=== PATIENT | male | born 1935 | race Caucasian/White ===

== ENCOUNTER 2023-12-18 16:31 | Observation (INO) | payer OTHER, SELFPAY ==
[2023-12-18] VITALS (7 sets, daily range): BP systolic 124–154; BP diastolic 63–83; BMI 26.9
--- NOTE | 2023-12-18 11:31 | ED.GENMED ---
History of Present Illness
<Helena Lisa PA-C - Last Filed: 12/18/23 15:57>
General
Chief Complaint: Chest Pain
Source: patient
Exam Limitations: none
Time Seen by Provider: 12/18/23 11:31
Nursing documentation reviewed up to this point in time: agreed with
History of Present Illness
History of Present Illness:
88-year-old male with past medical history of coronary artery disease with stent placement/hx of KS, hypertension, aortic stenosis s/p TAVR, presenting to the emergency department today with concerns of sudden onset of 10 out of 10 sharp substernal
chest pain starting while sitting at home this morning. Patient states that he was just sitting on the couch this way when the pain came on suddenly. Patient also started to feel lightheaded and dizzy with this. Patient then stood up and went to
walk around felt that the pain got worse. He then subsequently took 2 nitro's at approximately 11 AM, 5 minutes apart. Patient states that at that point the pain started to subside but his lightheadedness persisted at which point he advised his
to call 911. He states that when EMS arrived, the lightheadedness and dizziness started to improve, he was given 1 aspirin and route. Currently, patient states that he has no chest pain but he does note a small headache and some
lightheadedness. Patient denies any shortness of breath, any fevers or chills, any back pain, any abdominal pain. Patient follows with Dr. Camargo.
Past History
<Helena Lisa PA-C - Last Filed: 12/18/23 15:57>
Past History
ED Past Medical History: CAD, HTN, KS, Valvular disease and Other
ED Past Surgical History: Tonsilectomy and Other
Social History
Tobacco: Former smoker
Alcohol: None
Drug: None
Living: with family
Review of Systems
<Helena Lisa PA-C - Last Filed: 12/18/23 15:57>
Review of Systems
All Other Systems: ROS reviewed and negative except as documented in HPI and ROS
Phy Exam
<Helena Lisa PA-C - Last Filed: 12/18/23 15:57>
Physical Exam
Physical Exam:
General: Patient is well appearing and in no acute distress; non-toxic
Skin: Warm and dry, no rashes or lesions
Head: Normocephalic, atraumatic
Eyes: Sclera non-icteric. EOMs intact.
Cardiac: Regular rate and rhythm, no murmurs
Peripheral Vascular: No lower extremity swelling or edema, 2+ dorsalis pedis pulses bilaterally
Pulm: Normal respiratory effort, equal breath sounds bilaterally, no wheezes, rales or rhonchi
Abdomen: No abdominal tenderness to palpation
Musculoskeletal: No tenderness to palpation of the external chest wall
Neuro: CN II-XII intact, no focal neurologic deficits.
Psychiatric: Appropriate mood and affect.
Scores
<Helena Lisa PA-C - Last Filed: 12/18/23 15:57>
Heart Score for Chest Pain Patients
STEMI patient?: No
History: Highly Suspicious
ECG: Normal
Age: >/= 65 years
Risk Factors: >/= 3 Risk Factors or History of CAD
Troponin: </= Normal Limit
Heart Score for Chest Pain Patients: 6
Heart Score Risk: 20.3% MACE over next 6 weeks
Course
<Helena Lisa PA-C - Last Filed: 12/18/23 15:57>
Orders/Labs/Results
Orders:
Orders
12/18/23 11:34
Electrocardiogram (*1) Urgent
Reason for Study: Chest Pain
Cardiac Monitoring- Treatment ONCE
EKG- Treatment ONCE
IV Insert/Care/Rem.- Treatment PRN
O2 Therapy [RESP] Urgent
Titrate/Wean O2 to maintain O2 sat greater than (%): 90
Special Instructions: Maintain sats >/=90%
Pulse Ox/spot Check [RESP] Urgent
Quantity: 1
Special Instructions: ON ROOM AIR
12/18/23 11:42
Acetaminophen [Tylenol] 1,000 mg PO NOW STA
12/18/23 11:45
Complete Blood Count/With Diff Urgent
Comprehensive Metabolic Panel Urgent
Troponin I Urgent
12/18/23 13:25
EKG- Treatment ONCE
12/18/23 14:35
Electrocardiogram (*1) Urgent
Reason for Study: Chest Pain
12/18/23 14:37
Troponin I Urgent
Abnormal Lab Results
12/18/23 12/18/23
11:45 14:37
RBC 3.89 L 10^6/uL
(4.70-6.10)
Hgb 12.1 L g/dL
(13.0-18.0)
Hct 37.0 L %
(39.0-52.0)
MCV 95.1 H fL
(80.0-94.0)
MCH 31.1 H pg
(27.0-31.0)
MCHC 32.7 L g/dL
(33.0-37.0)
MPV 10.6 H fL
(7.4-10.4)
Eosinophils % 6.8 H %
(0-6)
BUN 23 H mg/dl
(9-20)
Glucose 180 H mg/dl
(70-99)
Troponin I 0.045 H* D ng/ml
12/18/23 11:45
12/18/23 11:45
Vital Signs
Initial and Last Documented VS:
Initial Vital Signs
Pulse Resp BP Pulse Ox
72 18 131/83 96
12/18/23 11:36 12/18/23 11:36 12/18/23 11:36 12/18/23 11:36
Last Documented Vital Signs
Pulse Resp BP Pulse Ox
61 15 142/78 97
12/18/23 14:00 12/18/23 14:00 12/18/23 14:00 12/18/23 14:00
<Janay Jimenes MD - Last Filed: 12/18/23 12:23>
Orders/Labs/Results
Orders:
Orders
12/18/23 11:34
Electrocardiogram (*1) Urgent
Reason for Study: Chest Pain
Cardiac Monitoring- Treatment ONCE
EKG- Treatment ONCE
IV Insert/Care/Rem.- Treatment PRN
O2 Therapy [RESP] Urgent
Titrate/Wean O2 to maintain O2 sat greater than (%): 90
Special Instructions: Maintain sats >/=90%
Pulse Ox/spot Check [RESP] Urgent
Quantity: 1
Special Instructions: ON ROOM AIR
12/18/23 11:42
Acetaminophen [Tylenol] 1,000 mg PO NOW STA
12/18/23 11:45
Complete Blood Count/With Diff Urgent
Comprehensive Metabolic Panel Urgent
Troponin I Urgent
12/18/23 13:25
EKG- Treatment ONCE
12/18/23 14:35
Electrocardiogram (*1) Urgent
Reason for Study: Chest Pain
12/18/23 14:37
Troponin I Urgent
Abnormal Lab Results
12/18/23 12/18/23
11:45 14:37
RBC 3.89 L 10^6/uL
(4.70-6.10)
Hgb 12.1 L g/dL
(13.0-18.0)
Hct 37.0 L %
(39.0-52.0)
MCV 95.1 H fL
(80.0-94.0)
MCH 31.1 H pg
(27.0-31.0)
MCHC 32.7 L g/dL
(33.0-37.0)
MPV 10.6 H fL
(7.4-10.4)
Eosinophils % 6.8 H %
(0-6)
BUN 23 H mg/dl
(9-20)
Glucose 180 H mg/dl
(70-99)
Troponin I 0.045 H* D ng/ml
12/18/23 11:45
12/18/23 11:45
Vital Signs
Initial and Last Documented VS:
Initial Vital Signs
Pulse Resp BP Pulse Ox
72 18 131/83 96
12/18/23 11:36 12/18/23 11:36 12/18/23 11:36 12/18/23 11:36
Last Documented Vital Signs
Pulse Resp BP Pulse Ox
61 15 142/78 97
12/18/23 14:00 12/18/23 14:00 12/18/23 14:00 12/18/23 14:00
Aleelt;Helena Lisa PA-C - Last Filed: 12/18/23 15:57>
MDM/Problems Addressed
Differential Diagnosis Includes:
ddx include ACS, PE, dysrhythmia, costochondritis
MDM/Problems Addressed:
Chest pain:
88-year-old male with past medical history of coronary artery disease with stent placement/hx of KS, hypertension, aortic stenosis s/p TAVR, presenting to the emergency department today with concerns of sudden onset of 10 out of 10 sharp substernal
chest pain starting while sitting at home this morning. Patient has associated dizziness with this. He took 2 nitro today which helped his symptoms. On physical exam, his vital signs are stable. His CBC and CMP are unremarkable with initial
troponin undetectable. His EKG demonstrates normal sinus rhythm with no obvious ischemic changes. Patient was evaluated by cardiology considering his concerning story. Cardiology recommends discharging if his second troponin is negative with
close follow-up and admitting should it be elevated. Second troponin was 0.045. Considering this finding, patient will be admitted for further workup. Patient referred for admission.
Chronic conditions affecting care:
A-fib, hypertension, coronary artery disease, aortic stenosis status post TAVR
Acute Exacerbation and/or Progression of Chronic Illness:
coronary artery disease
<Helena Lisa PA-C - Last Filed: 12/18/23 15:57>
*Pulse Oximetry
Patient hypoxic: no
*Critical Care Note
Total Time (30-74mins, 75-104mins- exclusive of procedures): Not Applicable
Data Reviewed
Review of Other/Old Records Reveals: Records (Reviewed discharge summary from 08/04/2020,reviewed ER physician documentation from 07/31/20)
Source: patient and records
<Helena Lisa PA-C - Last Filed: 12/18/23 15:57>
Update Note
Update Note:
1:27 pm-- Patient denies chest pain, lightheadedness, nausea, shortness of breath. Cardiology aware. Repeat troponin and EKG ordered.
ED Attending Note
<Helena Lisa PA-C - Last Filed: 12/18/23 15:57>
-
Portions of this chart may have been created with voice recognition software.� Occasional wrong word or��sound alike� substitutions may have occurred due to the inherent limitations of voice recognition software.
<Janay Jimenes MD - Last Filed: 12/18/23 12:23>
ED Attending Note
Patient seen and examined by attending physician: Yes
I performed the substantive portion of visit, reviewed & personally made and approve the management plan that is documented in note by myself or ANNITA.: Yes
ED Attending Note:
Patient appears well and comfortable now, however, he does report minimal symptoms of chest tightness, dizziness and shortness of breath on exertion. Patient's lungs are clear and he has no edema on exam. Given his history and symptoms, I feel
patient should be worked up as a possible acute coronary syndrome.
Discharge Plan
Departure
Patient Disposition: Admit
Date of Disposition: 12/18/23
Time of Disposition: 15:38
Admit to: Telemetry
Presentation/result/management discussed w/ accepting MD/DO: Hospitalist
Patient with high blood pressure during this ER visit?: Yes
Condition: Fair
Discharge Problem:
Acute coronary syndrome
Prescriptions:
No Action
aspirin 81 MG tablet,delayed release (DR/EC)
81 mg PO DAILY
tamsulosin 0.4 MG capsule
0.4 mg PO HS
saw palmetto 450 MG capsule
2 cap PO DAILY
nitroglycerin 0.4 MG tablet, sublingual
0.4 mg sublingual [id number] PRN (Reason: chest pain) Qty: 25 2RF
atorvastatin 40 MG tablet
40 mg PO HS
acetaminophen [Tylenol Arthritis Pain] 650 MG tablet extended release
1,300 mg PO BID
tadalafil 5 MG tablet
5 mg PO QPM
clopidogrel 75 MG tablet
75 mg PO DAILY Qty: 30 2RF
cyanocobalamin (vitamin B-12) 1,000 mcg Tablet
1,000 mcg PO QPM
spironolactone 25 mg Tablet
12.5 mg PO DAILY
carvedilol 3.125 mg Tablet
3.125 mg PO BID
acetaminophen [Tylenol Arthritis Pain] 650 mg Tablet Extended Release
650 mg PO HS
cholecalciferol (vitamin D3) [Vitamin D3] 50 mcg (2,000 unit) Tablet
50 mcg PO QPM
Referrals:
Mic Rhoades MD [Family Provider] -
Johanne Chen PA-C [Specified Professional Personl] - 01/01/24 10:40 am (You have a follow up visit with Dr. Camargo's PA, Johanne Chen, at the [place] office. Please call with questions. )
Interventions
Interventions:
*Risk Screen - Suicide Last Done: 12/18/23 11:56
*General Assessment Last Done: 12/18/23 11:39
*Neglect/Abuse Screening Last Done: 12/18/23 11:56
*ED COVID-19 Vaccine History Last Done: 12/18/23 12:20
ED- Cardiac Assessment Last Done: 12/18/23 11:56
Discharge Date and Time
Print Language: MONGOLIAN
[2023-12-18] MEDS: TYLENOL 1000 MG PO (11:49)
[2023-12-18 12:08] LABS: % Basophils 1.2 % (0-2); % Eosinophils 6.8 % (0-6); % Immature Granulocytes 0.3 % (0-0.5); % Lymphocytes 23.2 % (20.5-51.1); % Monocytes 8.7 % (1.7-9.3); % Neutrophils 59.8 % (42.2-75.2); Absolute Basophils 0.1 10^3/uL (0-0.2); Absolute Eosinophils 0.4 10^3/uL (0-0.7); Absolute Lymphocytes 1.4 10^3/uL (1.2-3.4); Absolute Monocytes 0.5 10^3/uL (0.1-0.6); Absolute Neutrophils 3.6 10^3/uL (1.4-6.5); Hemoglobin 12.1 g/dL (13.0-18.0); Mean Corp Hgb Conc. 32.7 g/dL (33.0-37.0); Mean Corpuscular Hgb 31.1 pg (27.0-31.0); Mean Corpuscular Volume 95.1 fL (80.0-94.0); Mean Platelet Volume 10.6 fL (7.4-10.4); Nucleated Red Blood Cells % 0 % (-); Platelet Count 181 10^3/uL (130-400); Red Blood Cell Count 3.89 10^6/uL (4.70-6.10); Red Cell Dist. Width 13.2 % (11.5-14.5); White Blood Cell Count 6.1 10^3/uL (4.8-10.8)
[2023-12-18 12:27] LABS: ALT (SGPT) 20 U/L (0-50); AST (SGOT) 23 U/L (17-59); Alkaline Phosphatase 71 U/L (38-126); Blood Urea Nitrogen 23 mg/dl (9-20); Calcium 9.6 mg/dl (8.4-10.2); Carbon Dioxide 28 mmol/L (22-30); Chloride 106 mmol/L (98-107); Estimated Creatinine Clearance 39 ml/min; Glucose 180 mg/dl (70-99); Potassium 4.4 mmol/L (3.5-5.1); Sodium 139 mmol/L (135-145); Total Bilirubin 0.5 mg/dl (0.2-1.3); Total Protein 6.4 g/dl (6.3-8.2); eGFR 57.81
[2023-12-18 12:39] LABS: Troponin I < 0.012 ng/ml
--- NOTE | 2023-12-18 14:03 | CON.CAR ---
Addendum entered and electronically signed by Lizandro Newton MD 12/18/23 15:17:
I saw and examined the patient.
The Hr Clerk's note was reviewed and I agree with the note.
Comment:
GEN: No distress, awake, Ox3
HEENT: supple, anicteric, mmm
LUNGS: CTA, no wheezes/rales
CV: Reg, S1/S2, 1/6 syst LSB, no gallop
ABD: soft, BS+, NT/ND
EXT: No edema
NEURO: Gross non-focal
SKIN: No rash
Plan:
88-year-old male with past medical history of coronary artery disease, TAVR, ischemic cardiomyopathy, hypertension, hyperlipidemia presents to the [facility] with chest tightness and dizziness. Patient states he had some tightness in the center
of his chest earlier today. He then took 1-1/2 nitroglycerin and had marked dizziness and lightheadedness. His pains eventually resolved on their own. He called 911 for evaluation. He currently is pain-free with a stable blood pressure.
Cardiac troponin x 1 is negative. Would repeat troponin now. If troponin is negative would be okay for discharge with outpatient follow-up.
I suspect his symptoms may be more due to the nitroglycerin then his chest pains.
Continue aspirin, Plavix, Coreg, amlodipine, and spironolactone. I would hold off on further titration of antianginals with his dizziness and borderline blood pressure. I will hold off on outpatient nitroglycerin for now.
He will be arranged for an echocardiogram as an outpatient as he does have a history of TAVR.
If his second troponin is abnormal he will need hospitalization.
Original Note:
Consultation
Consultation Request
Date/Time Consultation Requested: 12/18/2023
Date/Time Consultation Performed: 12/18/2023
Requesting Provider: Helena Lisa PA-C
Performing Provider: Dr. Newton
Reason for Consultation: Chest pain
Medical History
-
History of Present Illness:
HPI: Hiren is an 88 year old male with PMH of CAD w/ multiple prior stents, TAVR, ischemic CM, hypertension, hyperlipidemia, TIA, SUSAN, and prior tobacco abuse who presented to [facility] for evaluation of chest tightness and dizziness. He states he was
sitting downstairs at his computer earlier today when he had sudden onset chest tightness. Tightness was along anterior of entire chest, so he took a nitroglycerin tablet. After 2-3 minutes, he reports he took another tablet due to continued
discomfort. He then developed dizziness and lightheadedness which he states was more concerning than the tightness in his chest. He tried to walk upstairs to get his , but was unable to walk due to feeling lightheaded and off balance. He was
able to crawl to the top of the steps and told his to call 911. When he was in the ambulance on his way to the hospital, approximately 10 minutes after taking the nitro, he states his chest tightness and lightheadedness both began to improve.
On arrival to ER, initial troponin was negative, his VS were stable, and EKG was stable. He has been feeling well and has no chest discomfort or lightheadedness currently. He denies any SOB, diaphoresis, or palpitations during his episode of chest
tightness. He reports symptoms today feel different from his prior angina which he states felt like someone had a belt around his entire upper body. Cardiology consulted for evaluation given chest pain with history of CAD.
PMH:
CAD
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
PCI of first diagonal 06/27/2016
stable CAD with patent stents 08/03/2020
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
Ischemic CM, EF 45%
HTN
HLD
h/o TIA post PCI 08/2015
SUSAN
Former smoker
Past Medical History
Past Medical History: Other (In HPI)
Past Surgical History: Cardiac (RCA, LAD, PLB PCI 08/2015, D1 PCI 06/2016, TAVR 08/31/2020) and Other (hernia repair, R rotator cuff surgery)
Social History
Tobacco: Former Smoker
Alcohol: None
Drug: None
Personal:
Living: With Family
Employment: Retired
Family History
Family History: CAD, Cancer and Diabetes
Allergies / Home Medications
Allergy/AdvReac Type Severity Reaction Status Date / Time
No Known Allergies Allergy Unverified 08/24/20 09:30
�Medication �Instructions �Recorded �Confirmed �Type
aspirin 81 mg tablet,delayed 81 mg PO DAILY Blood clot 09/16/15 08/31/20 History
release prevention/tx
saw palmetto 450 mg capsule 2 cap PO DAILY herbal 09/16/15 08/31/20 History
tamsulosin 0.4 mg capsule 0.4 mg PO QPM PROSTATE 09/16/15 08/31/20 History
nitroglycerin 0.4 mg sublingual 0.4 mg sublingual [id number] PRN 09/21/15 08/31/20 Rx
tablet chest pain #25 tabs
atorvastatin 40 mg tablet 40 mg PO QPM High cholesterol 06/27/16 08/31/20 History
acetaminophen 650 mg 650 mg PO Q8H Pain 07/31/20 08/31/20 History
tablet,extended release (Tylenol
Arthritis Pain)
amlodipine 2.5 mg tablet 2.5 mg PO BID Blood pressure 07/31/20 08/31/20 History
cholecalciferol (vitamin D3) 25 1,000 units PO QPM Supplement 07/31/20 08/31/20 History
mcg (1,000 unit) tablet
furosemide 20 mg tablet 20 mg PO DAILY Heart Failure #30 08/04/20 08/24/20 Rx
tabs
tadalafil 5 mg tablet 5 mg PO DAILY Urinary issue 08/31/20 08/31/20 History
clopidogrel 75 mg tablet 75 mg PO DAILY #30 tabs 09/01/20 Rx
Review of Systems
-
History Source: Patient
All other systems: Negative unless noted
Physical Exam
Vital Signs
Pulse Resp BP Pulse Ox
62 15 124/66 96
12/18/23 13:00 12/18/23 13:00 12/18/23 13:00 12/18/23 13:00
Lab Results
12/18/23 11:45
12/18/23 11:45
Troponin I < 0.012 ng/ml 12/18/23 11:45
Physical Exam
General: Well Developed, Well Nourished and No Apparent Distress
HEENT: Normocephalic, Anicteric and Moist Mucous Membranes
Respiratory: Clear and Non Labored Respirations
Cardiac: S1/S2 and Regular Rhythm
Musculoskeletal: No Clubbing, No Cyanosis and Edema
Skin: Warm and Dry
Neuro: AO x 3 and Nonfocal/Grossly Intact
Psych: Calm
Impression / Plan
-
PCP: Dr. Rhoades
Global Program Director: Dr. Camargo
Impression:
Presented with chest tightness, dizziness
CAD
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
PCI of first diagonal 06/27/2016
stable CAD with patent stents 08/03/2020
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
Ischemic CM, EF 45%
HTN
HLD
h/o TIA post PCI 08/2015
SUSAN
Former smoker
Echo 10/04/2021: EF 45%, mild LVH, global hypokinesis, MAC, s/p TAVR w/ peak/mean gradients 14/8 mmHg
Plan:
-Episode of chest tightness earlier today while at computer. Took 2 nitro tablets within 2 minutes and subsequently had lightheadedness and near syncope.
-Suspect lightheadedness related to nitroglycerin.
-Chest tightness feels different from prior angina. Active regularly, golfing once/week without any exertional symptoms.
-Initial troponin negative. Repeat troponin and if remains stable/negative, ok for discharge.
-EKG SR with no acute ischemic changes noted.
-Continues on aspirin 81mg daily and Plavix 75 mg daily.
-Known CM with EF 45% by most recent echo. Will reassess as OP.
-As OP, will arrange for stress testing.
-BP stable. Continue coreg 3.125mg BID and spironolactone 12.5 mg daily.
-Continue lipitor 40mg daily.
-Follow up arranged.
HPI: Hiren is an 88 year old male with PMH of CAD w/ multiple prior stents, TAVR, ischemic CM, hypertension, hyperlipidemia, TIA, SUSAN, and prior tobacco abuse who presented to [facility] for evaluation of chest tightness and dizziness. He states he was
sitting downstairs at his computer earlier today when he had sudden onset chest tightness. Tightness was along anterior of entire chest, so he took a nitroglycerin tablet. After 2-3 minutes, he reports he took another tablet due to continued
discomfort. He then developed dizziness and lightheadedness which he states was more concerning than the tightness in his chest. He tried to walk upstairs to get his , but was unable to walk due to feeling lightheaded and off balance. He was
able to crawl to the top of the steps and told his to call 911. When he was in the ambulance on his way to the hospital, approximately 10 minutes after taking the nitro, he states his chest tightness and lightheadedness both began to improve.
On arrival to ER, initial troponin was negative, his VS were stable, and EKG was stable. He has been feeling well and has no chest discomfort or lightheadedness currently. He denies any SOB, diaphoresis, or palpitations during his episode of chest
tightness. He reports symptoms today feel different from his prior angina which he states felt like someone had a belt around his entire upper body. Cardiology consulted for evaluation given chest pain with history of CAD.
Data Reviewed
-
EKG: Tracing Personally Visualized and interpreted
Labs: Labs Reviewed by me
Old Records: Reviewed
[2023-12-18 15:21] LABS: Troponin I 0.045 ng/ml
--- NOTE | 2023-12-18 15:46 | HPS.HSE ---
Family Physician
<SKYLAR Sanders - Last Filed: 12/18/23 16:19>
-
Family Physician: Mic Rhoades
Chief Complaint
<SKYLAR Sanders - Last Filed: 12/18/23 16:19>
-
Chest pain
History of Present Illness
88-year-old male complaining of midsternal chest tightness earlier today at 1030 this a.m. while sitting. He reports taking 2 nitroglycerin then reported having dizziness with lightheadedness. His MAR reports he took Cialis 5 mg yesterday evening
12/17/2023. He called EMS to bring him to the emergency room. He is currently chest pain-free with normal blood pressure. He was evaluated at bedside by cardiology. He has past medical history of CAD/cardiac stents LAD PCI, RCA PCI, PLV PCI, left
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
Medical History
<SKYLAR Sanders - Last Filed: 12/18/23 16:19>
Past Medical History
Past Medical History: Reports Other
Additional Past Medical History:
CAD multiple cardiac stents
Ischemic cardiomyopathy EF 45%
HTN
HLD
h/o TIA post PCI 08/2015
SUSAN
Former smoker
Past Surgical History: Reports Other
Additional Past Surgical History:
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
PCI of first diagonal 06/27/2016
stable CAD with patent stents 08/03/2020/p TAVR 08/31/2020
Social History
Tobacco: Non-smoker
Alcohol: None
Drug: None
Personal:
Living: With Family
Employment: Retired
Family History
Family History: Not pertinent
Allergies / Home Medications
Allergies reflects when Allergies were last updated in [facility].
Home Medications with original date entered in [facility]
Allergy/Medication List:
Allergies
Allergy/AdvReac Type Severity Reaction Status Date / Time
No Known Allergies Allergy Unverified 08/24/20 09:30
Home Medications
aspirin 81 mg tablet,delayed release 81 mg PO DAILY Blood clot prevention/tx 09/16/15
saw palmetto 450 mg capsule 2 cap PO DAILY herbal 09/16/15
tamsulosin 0.4 mg capsule 0.4 mg PO HS PROSTATE 09/16/15
nitroglycerin 0.4 mg sublingual tablet 0.4 mg sublingual [id number] PRN chest pain #25 tabs 09/21/15
atorvastatin 40 mg tablet 40 mg PO HS High cholesterol 06/27/16
acetaminophen 650 mg tablet,extended release (Tylenol Arthritis Pain) 1,300 mg PO BID Pain 07/31/20
tadalafil 5 mg tablet 5 mg PO QPM Urinary issue 08/31/20
clopidogrel 75 mg tablet 75 mg PO DAILY #30 tabs 09/01/20
acetaminophen 650 mg tablet,extended release (Tylenol Arthritis Pain) 650 mg PO HS 12/18/23
carvedilol 3.125 mg tablet 3.125 mg PO BID 12/18/23
cholecalciferol (vitamin D3) 50 mcg (2,000 unit) tablet (Vitamin D3) 50 mcg PO QPM 12/18/23
cyanocobalamin (vitamin B-12) 1,000 mcg tablet 1,000 mcg PO QPM 12/18/23
spironolactone 25 mg tablet 12.5 mg PO DAILY 12/18/23
Review of Systems
Aleelt;SKYLAR Sanders - Last Filed: 12/18/23 16:19>
-
History Source: Patient and Family ( at bedside)
A 12 point ROS was completed and negative except as noted: Yes
Constitutional: Denies Fever or Chills
EENT: Denies Sore Throat or Runny Nose
Respiratory: Denies Cough or Trouble Breathing
Cardiac: Reports Chest Pain (Midsternal); Denies Diaphoresis, Palpitations or Syncope
Abdomen/GI: Denies Abdominal Pain, Nausea, Vomiting, Diarrhea, Constipated, Bloody Stools or Black Stools
: Denies Dysuria, Frequency, Flank Pain, Incontinence or Difficulty Voiding
Musculoskeletal: Denies Joint Pain or Edema
Skin: Denies Itching or Rash
Neurological: Denies Dizzy, Headache or Weakness
Endocrine: Reports No Symptoms
Hematologic/Lymphatic: Reports No Symptoms
Psych: Reports Calm
Physical Exam
<SKYLAR Sanders - Last Filed: 12/18/23 16:19>
Vital Signs
Vital Signs
Pulse Resp BP Pulse Ox
61 15 142/78 97
12/18/23 14:00 12/18/23 14:00 12/18/23 14:00 12/18/23 14:00
Physical Exam
General: Comfortable and Conversant; No Pain, Fever or Chills
HEENT: NormoCephalic, Anicteric, Moist mucous membranes and No Ptosis
Respiratory: Clear; No Wheezes, Rales or Rhonchi
Cardiac: S1/S2 and Regular Rhythm; No Murmur, Rub, Gallop or Peripheral Edema
Breast: Deferred by me
GI: Soft, Non Tender, Non Distended, Normal Bowel Sounds and No Hepatosplenomegaly
Rectal: Deferred by Provider
Genito-urinary: Deferred by me
Musculoskeletal: No Clubbing, No Cyanosis and No Edema
Skin: Warm and Dry; No Rash
Neuro: AO x 3, No Motor Deficits, Nonfocal/grossly intact, Cranial Nerves Intact and No Sensory Deficits; No Slurred Speech, Facial Droop or Tremors
Psych: Calm
Laboratory Results
<SKYLAR Sanders - Last Filed: 12/18/23 16:19>
-
12/18/23 11:45
12/18/23 11:45
Laboratory Results
Total Bilirubin 0.5 mg/dl (0.2-1.3) 12/18/23 11:45
AST 23 U/L (17-59) 12/18/23 11:45
ALT 20 U/L (0-50) 12/18/23 11:45
Alkaline Phosphatase 71 U/L (38-126) 12/18/23 11:45
Troponin I 0.045 ng/ml H* D 12/18/23 14:37
Impression/Plan
<SKYLAR Sanders - Last Filed: 12/18/23 16:19>
-
Impression/plan:
Admit to telemetry
#Nonischemic myocardial injury
Troponin <0.012 , second 0.045 follow troponin, EKG
-Hold nitroglycerin suspect prior lightheadedness was related to nitro use versus Cialis yesterday 12/17/23
Continue aspirin, Plavix,
-cont Coreg, amlodipine, spironolactone-with hold parameters
#CAD multiple cardiac stents
#Ischemic cardiomyopathy EF 45%
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
PCI of first diagonal 06/27/2016
stable CAD with patent stents 08/03/2020/p TAVR 08/31/2020
#TAVR Hx 08/31/2020
-Was recommended outpatient echo by cardiology
2D echo 10/04/2021: EF 45%, mild LVH, global hypokinesis, status post TAVR with peak mean gradients 14/8 mmHg
#HTN�benign
BP 142/78
-Continue Coreg
#HLD
-Check lipid profile
-Continue atorvastatin 40 mg every afternoon
#TIA post PCI 08/2015
#SUSAN
#Former smoker
#BPH
Hold tadalafil given patient took nitroglycerin earlier today-patient advised must wait 48 before using Cialis and nitro together
Continue Flomax
#Arthritis�unknown type
Continue Tylenol arthritis 1300 mg twice daily, vitamin D3
DVT prophylaxis
Subcu Lovenox
Full code
<Chema Guerra MD - Last Filed: 12/18/23 16:24>
-
Impression/plan:
Admit to telemetry
#Nonischemic myocardial injury
Troponin <0.012 , second 0.045 follow troponin, EKG
-Hold nitroglycerin suspect prior lightheadedness was related to nitro use versus Cialis yesterday 12/17/23
Continue aspirin, Plavix,
-cont Coreg, amlodipine, spironolactone-with hold parameters
#CAD multiple cardiac stents
#Ischemic cardiomyopathy EF 45%
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
PCI of first diagonal 06/27/2016
stable CAD with patent stents 08/03/2020/p TAVR 08/31/2020
#TAVR Hx 08/31/2020
-Was recommended outpatient echo by cardiology
2D echo 10/04/2021: EF 45%, mild LVH, global hypokinesis, status post TAVR with peak mean gradients 14/8 mmHg
#HTN�benign
BP 142/78
-Continue Coreg
#HLD
-Check lipid profile
-Continue atorvastatin 40 mg every afternoon
#TIA post PCI 08/2015
#SUSAN
#Former smoker
#BPH
Hold tadalafil given patient took nitroglycerin earlier today-patient advised must wait 48 before using Cialis and nitro together
Continue Flomax
#Arthritis�unknown type
Continue Tylenol arthritis 1300 mg twice daily, vitamin D3
DVT prophylaxis
Subcu Lovenox
Full code
I saw and examined the patient.
The ROLLER MACHINE OPERATOR or PA's note was reviewed and I agree with the note.
Comment:
88-year-old male complaining of midsternal chest tightness earlier today at 1030 this a.m. while sitting. He reports taking 2 nitroglycerin then reported having dizziness with lightheadedness.
Physical Exam
General: Comfortable and Conversant; No Pain, Fever or Chills
HEENT: NormoCephalic, Anicteric, Moist mucous membranes and No Ptosis
Respiratory: Clear; No Wheezes, Rales or Rhonchi
Cardiac: S1/S2
GI: Soft, Non Tender, Non Distended, Normal Bowel Sounds and No Hepatosplenomegaly
Genito-urinary: NO Carlos
Musculoskeletal: No Clubbing, No Cyanosis and No Edema
Skin: Warm and Dry; No Rash
Neuro: AO x 3, No Motor Deficits, Nonfocal/grossly intact, Cranial Nerves Intact and No Sensory Deficits; No Slurred Speech, Facial Droop or Tremors
Psych: Calm
#Nonischemic myocardial injury
No active chest pain at present time
Troponin <0.012 , second 0.045 follow troponin, EKG
-Hold nitroglycerin suspect prior lightheadedness was related to nitro use versus Cialis yesterday 12/17/23
Continue aspirin, Plavix,
-cont Coreg, amlodipine, spironolactone-with hold parameters
d/ cardiology, ok for telemetry, keep on aspirin and Plavix for now.
#CAD multiple cardiac stents
#Ischemic cardiomyopathy EF 45%
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
PCI of first diagonal 06/27/2016
stable CAD with patent stents 08/03/2020/p TAVR 08/31/2020
#TAVR Hx 08/31/2020
-Was recommended outpatient echo by cardiology
2D echo 10/04/2021: EF 45%, mild LVH, global hypokinesis, status post TAVR with peak mean gradients 14/8 mmHg
#HTN�benign
BP 142/78
-Continue Coreg
#HLD
-Check lipid profile
-Continue atorvastatin 40 mg every afternoon
#TIA post PCI 08/2015
#SUSAN
#Former smoker
#BPH
Hold tadalafil given patient took nitroglycerin earlier today-patient advised must wait 48 before using Cialis and nitro together
Continue Flomax
#Arthritis�unknown type
Continue Tylenol arthritis 1300 mg twice daily, vitamin D3
DVT prophylaxis
Subcu Lovenox
Total time spent to see the patient, examine the patient on the floor, review data and lab results, discuss treatment plan with patient, and his , ER doctor, nursing staff around 75 minutes
[2023-12-18] MEDS: VITAMIN B-12 1000 MCG PO (18:28)
[2023-12-18] MEDS: LOVENOX 40 MG SC (18:28)
[2023-12-18] MEDS: VITAMIN D3 (cholecalciferol) 50 MCG PO (18:28)
[2023-12-18] MEDS: COREG 3.125 MG PO (20:55)
[2023-12-18] MEDS: FLOMAX 0.4 MG PO (20:56)
[2023-12-18] MEDS: LIPITOR 40 MG PO (20:56)
[2023-12-18 21:14] LABS: Troponin I 0.063 ng/ml
[2023-12-19] VITALS (12 sets, daily range): BP systolic 109–161; BP diastolic 66–95; PULSE 64; O2SAT 97; BMI 25.4
[2023-12-19] MEDS: TYLENOL PO ×3 (00:02→13:16)
[2023-12-19 03:47] LABS: % Basophils 1.3 % (0-2); % Eosinophils 7.1 % (0-6); % Immature Granulocytes 0.1 % (0-0.5); % Lymphocytes 35.6 % (20.5-51.1); % Monocytes 9.2 % (1.7-9.3); % Neutrophils 46.7 % (42.2-75.2); Absolute Basophils 0.1 10^3/uL (0-0.2); Absolute Eosinophils 0.5 10^3/uL (0-0.7); Absolute Lymphocytes 2.5 10^3/uL (1.2-3.4); Absolute Monocytes 0.7 10^3/uL (0.1-0.6); Absolute Neutrophils 3.3 10^3/uL (1.4-6.5); Hematocrit 34.6 % (39.0-52.0); Hemoglobin 11.6 g/dL (13.0-18.0); Mean Corp Hgb Conc. 33.5 g/dL (33.0-37.0); Mean Corpuscular Hgb 30.6 pg (27.0-31.0); Mean Corpuscular Volume 91.3 fL (80.0-94.0); Mean Platelet Volume 10.5 fL (7.4-10.4); Nucleated Red Blood Cells % 0 % (-); Platelet Count 170 10^3/uL (130-400); Red Blood Cell Count 3.79 10^6/uL (4.70-6.10); Red Cell Dist. Width 13.1 % (11.5-14.5); White Blood Cell Count 7.1 10^3/uL (4.8-10.8)
[2023-12-19 04:11] LABS: Blood Urea Nitrogen 26 mg/dl (9-20); Calcium 9.5 mg/dl (8.4-10.2); Carbon Dioxide 28 mmol/L (22-30); Chloride 107 mmol/L (98-107); Estimated Creatinine Clearance 47 ml/min; Glucose 103 mg/dl (70-99); HDL Cholesterol 57 mg/dl; LDL Cholesterol, Calculated 49 mg/dl; Potassium 4.2 mmol/L (3.5-5.1); Sodium 139 mmol/L (135-145); Total Cholesterol 122 mg/dl (50-199); Triglyceride 81 mg/dl (10-149); Very Low Density Lipoprotein 16 mg/dl (0-30); eGFR > 60.00
[2023-12-19 04:28] LABS: Troponin I 0.047 ng/ml
--- NOTE | 2023-12-19 07:53 | W.PN.CARDCBS ---
Addendum entered and electronically signed by Carlos Parikh MD 12/19/23 09:45:
Attending addendum: Patient will be scheduled for left heart catheterization today given mildly elevated troponin. Further management decisions will be made after the angiogram is completed. Refer to the cardiac catheterization report
Original Note:
Today's Communication / Plan
-
C today
Continue aspirin and Plavix
Continue lipitor
Impression / Plan
-
PCP: Dr. Rhoades
Manufacturing Project Engineer: Dr. Camargo
Impression:
Presented with chest tightness, dizziness
Elevated troponin
CAD
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
PCI of first diagonal 06/27/2016
stable CAD with patent stents 08/03/2020
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
Ischemic CM, EF 45%
HTN
HLD
h/o TIA post PCI 08/2015
SUSAN
Former smoker
Echo 10/04/2021: EF 45%, mild LVH, global hypokinesis, MAC, s/p TAVR w/ peak/mean gradients 14/8 mmHg
Echo 12/19/2023: Study pending
Plan:
-Presented with episode of chest discomfort, occurring at rest.
-Took 2 nitro tablets within 2 minutes and subsequently had lightheadedness and near syncope. Chest tightness resolved within approximately 10 minutes.
-Initial troponin negative, however subsequently was elevated, peaking at 0.063 and trending down thereafter.
-He has had no further chest pain overnight. No further lightheadedness.
-Given elevated troponin with episode of chest pain and known CAD, plan is for [facility] today, 12/18. Keep NPO.
-Continues on aspirin 81mg daily and Plavix 75 mg daily.
-Known CM with EF 45% by most recent echo. Recheck post cath.
-BP stable. Continue coreg 3.125mg BID and spironolactone 12.5 mg daily.
-Continue lipitor 40mg daily. LDL 49.
-Follow up arranged.
HPI: Hiren is an 88 year old male with PMH of CAD w/ multiple prior stents, TAVR, ischemic CM, hypertension, hyperlipidemia, TIA, SUSAN, and prior tobacco abuse who presented to [facility] for evaluation of chest tightness and dizziness. He states he was
sitting downstairs at his computer earlier today when he had sudden onset chest tightness. Tightness was along anterior of entire chest, so he took a nitroglycerin tablet. After 2-3 minutes, he reports he took another tablet due to continued
discomfort. He then developed dizziness and lightheadedness which he states was more concerning than the tightness in his chest. He tried to walk upstairs to get his , but was unable to walk due to feeling lightheaded and off balance. He was
able to crawl to the top of the steps and told his to call 911. When he was in the ambulance on his way to the hospital, approximately 10 minutes after taking the nitro, he states his chest tightness and lightheadedness both began to improve.
On arrival to ER, initial troponin was negative, his VS were stable, and EKG was stable. He has been feeling well and has no chest discomfort or lightheadedness currently. He denies any SOB, diaphoresis, or palpitations during his episode of chest
tightness. He reports symptoms today feel different from his prior angina which he states felt like someone had a belt around his entire upper body. Cardiology consulted for evaluation given chest pain with history of CAD.
Progress Note - Manufacturing Project Engineer
Subjective
Date of Service: December 19, 2023
No further chest pain or lightheadedness overnight.
Objective
Labs:
12/19/23 03:35
12/19/23 03:35
Labs
Hgb 11.6 g/dL (13.0-18.0) L 12/19/23 03:35
Hct 34.6 % (39.0-52.0) L 12/19/23 03:35
Plt Count 170 10^3/uL (130-400) 12/19/23 03:35
Sodium 139 mmol/L (135-145) 12/19/23 03:35
Potassium 4.2 mmol/L (3.5-5.1) 12/19/23 03:35
BUN 26 mg/dl (9-20) H 12/19/23 03:35
Creatinine 1.0 mg/dL (0.7-1.3) 12/19/23 03:35
Glucose 103 mg/dl (70-99) H 12/19/23 03:35
Troponins
12/18/23 12/18/23 12/18/23
11:45 14:37 20:42
Troponin I < 0.012 0.045 H* D 0.063 H* D
12/19/23 12/19/23
03:35 09:00
Troponin I 0.047 H* D Cancelled
Vital Signs and I&O:
Vital Signs
Temp Pulse Resp BP Pulse Ox
97.3 F 53 16 121/72 97
12/19/23 04:11 12/19/23 04:11 12/19/23 04:11 12/19/23 04:11 12/19/23 04:11
Vital Signs
Temp Pulse Resp BP Pulse Ox
97.3 F 53 16 121/72 97
12/19/23 04:11 12/19/23 04:11 12/19/23 04:11 12/19/23 04:11 12/19/23 04:11
Intake & Output
12/17/23 12/18/23 12/19/23 12/20/23
06:59 06:59 06:59 06:59
Intake Total 240 / 240
Balance 240 / 240
Physical Exam
Physical Exam
GEN: No distress, awake, alert, oriented x3
HEENT: supple, anicteric, mmm
LUNGS: CTA b/l, no wheezes/rales
CV: Reg, S1/S2, no murmur
EXT: No clubbing, cyanosis, or edema
NEURO: Gross non-focal
SKIN: Warm, dry, no rash
[2023-12-19] MEDS: ALDACTONE 12.5 MG PO (08:09)
[2023-12-19] MEDS: PLAVIX 75 MG PO (08:09)
[2023-12-19] MEDS: ASPIR LOW (ENTERIC COATED) 81 MG PO (08:09)
[2023-12-19] MEDS: COREG 3.125 MG PO (08:10)
--- NOTE | 2023-12-19 08:48 | W.PN.HOSP.TC ---
Today's Communication/Plan
-
LHC per cardiology
will follow
Assessment / Plan
Assessment / Plan
Physical Exam
General: Comfortable and Conversant; No Pain, Fever or Chills
HEENT: NormoCephalic, Anicteric, Moist mucous membranes and No Ptosis
Respiratory: Clear; No Wheezes, Rales or Rhonchi
Cardiac: S1/S2
GI: Soft, Non Tender, Non Distended, Normal Bowel Sounds and No Hepatosplenomegaly
Genito-urinary: No Carlos
Musculoskeletal: No Clubbing, No Cyanosis and No Edema
Skin: Warm and Dry; No Rash
Neuro: AO x 3, No Motor Deficits, Nonfocal/grossly intact, Cranial Nerves Intact and No Sensory Deficits; No Slurred Speech, Facial Droop or Tremors
Psych: Calm
# Type II AR
Chest pain with Mildly positive troponin
Rule out cardiac ischemia,
Seen this morning and plan to do LHC to determine if ischemia or non ischemia related chest pain
No active chest pain at present time
Troponin <0.012 , second 0.045 follow troponin, EKG
-Hold nitroglycerin suspect prior lightheadedness was related to nitro use versus Cialis yesterday 12/17/23
Continue aspirin, Plavix,
-cont Coreg, amlodipine, spironolactone-with hold parameters
Appreciate cardiology input
#CAD multiple cardiac stents
#Ischemic cardiomyopathy EF 45%
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
PCI of first diagonal 06/27/2016
stable CAD with patent stents 08/03/2020/p TAVR 08/31/2020#TAVR Hx 08/31/2020
-Was recommended outpatient echo by cardiology
2D echo 10/04/2021: EF 45%, mild LVH, global hypokinesis, status post TAVR with peak mean gradients 14/8 mmHg
#HTN�benign
BP 142/78
-Continue Coreg
#HLD
-Check lipid profile
-Continue atorvastatin 40 mg every afternoon
#TIA post PCI 08/2015
#SUSAN
#Former smoker
#BPH
Hold tadalafil given patient took nitroglycerin earlier today-patient advised must wait 48 before using Cialis and nitro together
Continue Flomax
#Arthritis�unknown type
Continue Tylenol arthritis 1300 mg twice daily, vitamin D3
DVT prophylaxis
Subcu Lovenox
Total time spent to see the patient, examine the patient on the floor, review data and lab results, discuss treatment plan with patient, nursing staff around 55 minutes
Anticipated Discharge: Within 24 hours
Subjective/Interval History
-
Date of Service: December 19, 2023
No chest pain over night
No sob
Objective Data
-
Labs:
Laboratory Results
12/19/23
03:35
WBC 7.1
Hgb 11.6 L
Hct 34.6 L
Plt Count 170
Sodium 139
Potassium 4.2
Chloride 107
Carbon Dioxide 28
BUN 26 H
Creatinine 1.0
Glucose 103 H
Calcium 9.5
Vital Signs:
Vital Signs
Temp Pulse Resp BP Pulse Ox
97.3 F 53 16 121/72 97
12/19/23 04:11 12/19/23 04:11 12/19/23 04:11 12/19/23 04:11 12/19/23 04:11
I&O
12/18/23 12/19/23 12/20/23
06:59 06:59 06:59
Intake Total 240 / 240
Balance 240 / 240
--- NOTE | 2023-12-19 11:53 | ITS.CL.CATH ---
Mobile Development Manager - Catheterization
Cardiac Catheterization
Procedure Report:
LEFT HEART CATHETERIZATION
Date of Procedure: December 19, 2023
Referring: Dr. Esa Newton
PROCEDURES:
1. Coronary angiography
INDICATION: This is an 88-year-old gentleman with a prior history of coronary artery disease and stenting of the mid LAD with a 3.0 x 16 mm Promus stent, a 2.5 x 16 mm Promus stent and a posterolateral branch jailing a parallel sidebranch in 2015
and stenting of the first diagonal branch with a 2.25 x 24 mm Synergy stent in 2017. He had a transcatheter aortic valve placed in August 2020 for treatment of severe symptomatic aortic stenosis. He has done well and was seen in the office 1 week
ago. He presented to [facility] emergency department on 12/18/2023 with complaints of chest discomfort and his troponin was initially undetectable then became mildly elevated peaking at 0.065 ng/mL before trending lower. He is now referred
for coronary angiography.
ACCESS: Right radial artery, 6 [place] sheath
HEMODYNAMICS : (mmHg)
AO (s/d) : 108/55
CORONARY FINDINGS
DOMINANCE: Right
LEFT MAIN: Normal
LEFT ANTERIOR DESCENDING: The LAD arises normally from the left main and runs in the anterior interventricular groove. The first diagonal branch arises very proximally from the LAD. There is a stent in the midportion of the first diagonal branch
that is widely patent. The stent in the mid LAD spans the origin of the first septal finished carpet inspector. The mid LAD gives rise to a very small second diagonal branch that has a focal 80% stenosis at its origin. The distal LAD has a 60% stenosis and
apically has a 60% stenosis
CIRCUMFLEX: The circumflex arises from the left main and gives rise to medium caliber OM1 and terminates in a small OM 2. There is SAGE-3 flow into both vessels.
RIGHT CORONARY ARTERY: The right coronary artery is a dominant vessel. The stent in the mid right coronary artery is widely patent. There is a stent in the distal posterolateral branch that remains widely patent. The stent jails a parallel
posterolateral daughter vessel
VENTRICULOGRAPHY: Not done
RADIATION SUMMARY: Fluoro Time (min): 5.9, Dose (mGy): 479, DAP (Gy.cm2) : 30.9
Closure Device: TR band
CONCLUSIONS
1. Stable coronary anatomy and patent diagonal, LAD, mid RCA, and PLB stents
RECOMMENDATIONS
1. Medical therapy: Increase carvedilol from 3.125 mg to 6.25 mg p.o. twice daily and add low-dose amlodipine
2. Cardiac monitoring x 2 weeks with Bardy DX
Copy to: Dr. Bk Camargo
[2023-12-19] MEDS: TYLENOL 650 MG PO (17:15)
[2023-12-19] MEDS: VITAMIN D3 (cholecalciferol) 50 MCG PO (17:15)
[2023-12-19] MEDS: VITAMIN B-12 1000 MCG PO (17:15)
[2023-12-19] MEDS: LOVENOX 40 MG SC (17:15)
[2023-12-19] MEDS: LIPITOR 40 MG PO (22:31)
[2023-12-19] MEDS: FLOMAX 0.4 MG PO (22:31)
[2023-12-19] MEDS: NORVASC 2.5 MG PO (22:33)
[2023-12-19] MEDS: COREG 6.25 MG PO (22:33)
[2023-12-20] MEDS: TYLENOL PO ×2 (00:36→11:47)
[2023-12-20 03:00] VITALS: BP 133/68
[2023-12-20] MEDS: TYLENOL 650 MG PO (05:36)
[2023-12-20 06:00] VITALS: BMI 25.1
[2023-12-20] MEDS: ASPIR LOW (ENTERIC COATED) 81 MG PO (08:15)
[2023-12-20] MEDS: COREG 6.25 MG PO (08:15)
[2023-12-20] MEDS: NORVASC 2.5 MG PO (08:15)
[2023-12-20] MEDS: PLAVIX 75 MG PO (08:15)
--- NOTE | 2023-12-20 08:30 | W.PN.HOSP.TC ---
Today's Communication/Plan
-
dc
Assessment / Plan
Assessment / Plan
Physical Exam
General: Comfortable and Conversant; No Pain, Fever or Chills
HEENT: NormoCephalic, Anicteric, Moist mucous membranes and No Ptosis
Respiratory: Clear; No Wheezes, Rales or Rhonchi
Cardiac: S1/S2, + murmur
GI: Soft, Non Tender, Non Distended, Normal Bowel Sounds
Genito-urinary: No Carlos
Musculoskeletal: No Clubbing, No Cyanosis and No Edema. Right wrist , no swelling, good peripheral pulse.
Skin: Warm and Dry; No Rash
Neuro: AO x 3, No Motor Deficits, Nonfocal/grossly intact, Cranial Nerves Intact and No Sensory Deficits; No Slurred Speech, Facial Droop or Tremors
Psych: Calm
# Type II PA
Chest pain with Mildly positive troponin
LHC showed : Stable coronary anatomy and patent diagonal, LAD, mid RCA, and PLB stents. Right wrist , no swelling, good peripheral pulse.
No active chest pain at present time
Troponin <0.012 , second 0.045 follow troponin, EKG
-Hold nitroglycerin suspect prior lightheadedness was related to nitro use versus Cialis
Continue aspirin, Plavix,
Cardiac monitoring x 2 weeks with Bardy DX
-cont Coreg but increase the dose , amlodipine, spironolactone-with hold parameters
Appreciate cardiology input
#CAD multiple cardiac stents
#Ischemic cardiomyopathy EF 45%
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
PCI of first diagonal 06/27/2016
stable CAD with patent stents 08/03/2020/p TAVR 08/31/2020#TAVR Hx 08/31/2020
-Was recommended outpatient echo by cardiology
2D echo 10/04/2021: EF 45%, mild LVH, global hypokinesis, status post TAVR with peak mean gradients 14/8 mmHg
#HTN�benign
-Continue Coreg, added low dose amlodipine.
#HLD
-Check lipid profile
-Continue atorvastatin 40 mg every afternoon
#TIA post PCI 08/2015
#SUSAN
#Former smoker
#BPH
Held tadalafil given patient took nitroglycerin earlier-patient advised must wait 48 before using Cialis and nitro together
Continue Flomax
#Arthritis�unknown type
Continue Tylenol arthritis 1300 mg twice daily, vitamin D3
DVT prophylaxis
Subcu Lovenox
Total discharge time spent to see the patient, examine the patient on the floor, review data and lab results, discuss discharge plan with patient, application project leader, nursing staff around 65 minutes
Anticipated Discharge: Today
Subjective/Interval History
-
Date of Service: December 20, 2023
No chest pain
No sob
Objective Data
-
Labs:
Laboratory Results
12/20/23
07:14
WBC Pending
Hgb Pending
Hct Pending
Plt Count Pending
Sodium Pending
Potassium Pending
Chloride Pending
Carbon Dioxide Pending
BUN Pending
Creatinine Pending
Glucose Pending
Calcium Pending
Vital Signs:
Vital Signs
Temp Pulse Resp BP Pulse Ox
97.5 F 56 16 133/68 95
12/20/23 03:00 12/20/23 03:00 12/20/23 03:00 12/20/23 03:00 12/20/23 03:00
I&O
12/19/23 12/20/23 12/21/23
06:59 06:59 06:59
Intake Total 240 / 240 420 / 420
Output Total 560 / 560
Balance 240 / 240 -140 / -140
[2023-12-20 08:32] VITALS: BP 125/60
[2023-12-20 09:03] LABS: Hematocrit 37.3 % (39.0-52.0); Hemoglobin 12.5 g/dL (13.0-18.0); Mean Corp Hgb Conc. 33.5 g/dL (33.0-37.0); Mean Corpuscular Hgb 31.4 pg (27.0-31.0); Mean Corpuscular Volume 93.7 fL (80.0-94.0); Mean Platelet Volume 11.2 fL (7.4-10.4); Platelet Count 182 10^3/uL (130-400); Red Blood Cell Count 3.98 10^6/uL (4.70-6.10); White Blood Cell Count 6.9 10^3/uL (4.8-10.8)
[2023-12-20 09:29] LABS: Blood Urea Nitrogen 26 mg/dl (9-20); Calcium 9.5 mg/dl (8.4-10.2); Carbon Dioxide 27 mmol/L (22-30); Chloride 105 mmol/L (98-107); Estimated Creatinine Clearance 43 ml/min; Glucose 99 mg/dl (70-99); Potassium 4.3 mmol/L (3.5-5.1); Sodium 137 mmol/L (135-145); eGFR > 60.00
--- NOTE | 2023-12-20 10:41 | W.PN.CARDCBS ---
Today's Communication / Plan
-
Stable on increased dose of beta-bouchra and new calcium channel bouchra
Continue aspirin, Plavix, statin
Euvolemic and patient asymptomatic
Stable for DC from cardiology standpoint
Impression / Plan
-
PCP: Dr. Rhoades
Derrick Boat Captain: Dr. Camargo
Impression:
Presented with chest tightness, dizziness
Elevated troponin
CAD
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
PCI of first diagonal 06/27/2016
stable CAD with patent stents 08/03/2020
12/19/2023: Stable coronary anatomy and patent diagonal, LAD, mid RCA, and PLB stents
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
Ischemic CM, EF 45%
HTN
HLD
h/o TIA post PCI 08/2015
SUSAN
Former smoker
Echo 10/04/2021: EF 45%, mild LVH, global hypokinesis, MAC, s/p TAVR w/ peak/mean gradients 14/8 mmHg
Echo 12/19/2023: EF 50%, no regional wall motion abnormalities, normal systolic function, normal RV size and function, mildly dilated LA, status post TAVR mean gradient 8 mmHg
Plan:
-Presented with episode of chest discomfort, occurring at rest.
-Took 2 nitro tablets within 2 minutes and subsequently had lightheadedness and near syncope. Chest tightness resolved within approximately 10 minutes.
-Initial troponin negative, however subsequently was elevated, peaking at 0.063 and trending down thereafter.
-He has had no further chest pain overnight. No further lightheadedness.
-Given elevated troponin with episode of chest pain and known CAD, plan is for [facility] today, 12/18.
-Continues on aspirin 81mg daily and Plavix 75 mg daily.
-Known CM with EF 45% by most recent echo. Recheck post cath. As above
-BP stable. Continue coreg 3.125mg BID and spironolactone 12.5 mg daily.; Increased carvedilol to 6.25 p.o. twice daily and added low-dose amlodipine
-Continue lipitor 40mg daily. LDL 49.
-Follow up arranged patient wearing Bardy monitor x 2 weeks
HPI: Hiren is an 88 year old male with PMH of CAD w/ multiple prior stents, TAVR, ischemic CM, hypertension, hyperlipidemia, TIA, SUSAN, and prior tobacco abuse who presented to [facility] for evaluation of chest tightness and dizziness. He states he was
sitting downstairs at his computer earlier today when he had sudden onset chest tightness. Tightness was along anterior of entire chest, so he took a nitroglycerin tablet. After 2-3 minutes, he reports he took another tablet due to continued
discomfort. He then developed dizziness and lightheadedness which he states was more concerning than the tightness in his chest. He tried to walk upstairs to get his , but was unable to walk due to feeling lightheaded and off balance. He was
able to crawl to the top of the steps and told his to call 911. When he was in the ambulance on his way to the hospital, approximately 10 minutes after taking the nitro, he states his chest tightness and lightheadedness both began to improve.
On arrival to ER, initial troponin was negative, his VS were stable, and EKG was stable. He has been feeling well and has no chest discomfort or lightheadedness currently. He denies any SOB, diaphoresis, or palpitations during his episode of chest
tightness. He reports symptoms today feel different from his prior angina which he states felt like someone had a belt around his entire upper body. Cardiology consulted for evaluation given chest pain with history of CAD.
Progress Note - Derrick Boat Captain
Subjective
Date of Service: December 20, 2023
Patient seen and examined this morning. No acute events overnight. Patient resting comfortably in chair. Patient denies any chest pain, shortness of breath, lightheadedness, dizziness, near-syncope, syncope, lower extremity edema, or weakness.
Telemetry demonstrates sinus rhythm/sinus bradycardia no other events.
Objective
Labs:
12/20/23 07:14
12/20/23 07:14
Labs
Hgb 12.5 g/dL (13.0-18.0) L 12/20/23 07:14
Hct 37.3 % (39.0-52.0) L 12/20/23 07:14
Plt Count 182 10^3/uL (130-400) 12/20/23 07:14
Sodium 137 mmol/L (135-145) 12/20/23 07:14
Potassium 4.3 mmol/L (3.5-5.1) 12/20/23 07:14
BUN 26 mg/dl (9-20) H 12/20/23 07:14
Creatinine 1.1 mg/dL (0.7-1.3) 12/20/23 07:14
Glucose 99 mg/dl (70-99) 12/20/23 07:14
Troponins
12/18/23 12/18/23 12/18/23
11:45 14:37 20:42
Troponin I < 0.012 0.045 H* D 0.063 H* D
12/19/23 12/19/23
03:35 09:00
Troponin I 0.047 H* D Cancelled
Vital Signs and I&O:
Vital Signs
Temp Pulse Resp BP Pulse Ox
97.6 F 55 16 125/60 95
12/20/23 08:32 12/20/23 08:32 12/20/23 08:32 12/20/23 08:32 12/20/23 08:32
Vital Signs
Temp Pulse Resp BP Pulse Ox
97.6 F 55 16 125/60 95
12/20/23 08:32 12/20/23 08:32 12/20/23 08:32 12/20/23 08:32 12/20/23 08:32
Intake & Output
12/18/23 12/19/23 12/20/23 07/28/24
06:59 06:59 06:59 06:59
Intake Total 240 / 240 420 / 420
Output Total 560 / 560
Balance 240 / 240 -140 / -140
Physical Exam
Physical Exam
GEN: No distress, awake, alert, oriented x3
HEENT: supple, anicteric, mmm
LUNGS: CTA b/l, no wheezes/rales
CV: Reg, S1/S2, no murmur; monitor in place
EXT: No clubbing, cyanosis, or edema
NEURO: Gross non-focal
SKIN: Warm, dry, no rash
[2023-12-20 11:09] VITALS: BP 131/63
--- NOTE | 2023-12-20 11:48 | CM ---
Patient seen bedside, initial assessment completed. Patient resides with his in a multiple story home, two steps to enter. Patient reports VN in the past, denies SNF, denies use of DME. Patient confirms PCP Dr. Rhoades, pharmacy [facility],
confirms prescription coverage. Patient denies food, housing/utility, transportation insecurities at home. CM will continue to follow for all discharge planning needs.
Plan; home no needs likely.
--- NOTE | 2023-12-20 13:06 | W.DCSUMMARY ---
Discharge Summary
Discharge Data
Date of Admission: 12/18/23
Date of Discharge: 12/20/23
-
Pending Results: No
Hospital Course
88 years old male presented with history of chest tightness and dizziness. Patient was found to have mildly elevated troponin, peak at 0.063. Patient had history of coronary artery disease. He was evaluated by defensive secondary coach. Patient did not have
active chest pain in the hospital. Patient underwent left heart catheterization that showed stable coronary artery disease with patent stents. Injection Molding Machine Offbearer increased his carvedilol to 6.25 mg with good tolerance. Added low-dose amlodipine.
Aldactone was held. Patient was monitored on telemetry. No cardiac arrhythmias. Patient was counseled regarding safe use of Cialis and to avoid taking it with nitroglycerin, patient verbalized understanding. He remained hemodynamically stable
with no chest pain, dizziness or hypotension. Patient was discharged home in a stable condition.
Discharge Plan
-
Patient Disposition: Home (Routine Discharge)
Discharge Diagnosis/Procedures: Presented with chest tightness, dizziness. Elevated troponin status post cardiac catheterization with Stable coronary artery disease.
We made changes to her medication as follows:
- We stopped Aldactone for now
- Increased carvedilol to 6.25 twice a day
-We added a new medicine called amlodipine. Amlodipine is a calcium channel bouchra, potential side effects include hypotension, ankle edema(uncommon in men).
Check your blood pressure at home twice a day, keep diary, and follow with your doctors.
Avoid taking Cialis and nitroglycerine at same time or within few hours time due to potential significant interaction.
Diet: As tolerated
Stand Alone Forms: DC Instructions- Cath/EP Lab
Referrals:
Mic Rhoades MD [Family Provider] - in one to two weeks
Johanne Chen PA-C [Specified Professional Personl] - 01/01/24 10:40 am (Cardiology followup appointment)
Prescriptions:
New
carvedilol 6.25 mg Tablet
6.25 mg PO BID Qty: 60 0RF
amlodipine 5 mg tablet
5 mg PO DAILY Qty: 30 0RF
Continued
aspirin 81 MG tablet,delayed release (DR/EC)
81 mg PO DAILY
tamsulosin 0.4 MG capsule
0.4 mg PO HS
saw palmetto 450 MG capsule
2 cap PO DAILY
nitroglycerin 0.4 MG tablet, sublingual
0.4 mg sublingual [id number] PRN (Reason: chest pain) Qty: 25 2RF
atorvastatin 40 MG tablet
40 mg PO HS
acetaminophen [Tylenol Arthritis Pain] 650 MG tablet extended release
1,300 mg PO BID
clopidogrel 75 MG tablet
75 mg PO DAILY Qty: 30 2RF
cyanocobalamin (vitamin B-12) 1,000 mcg Tablet
1,000 mcg PO QPM
acetaminophen [Tylenol Arthritis Pain] 650 mg Tablet Extended Release
650 mg PO HS
cholecalciferol (vitamin D3) [Vitamin D3] 50 mcg (2,000 unit) Tablet
50 mcg PO QPM
Changed
tadalafil 5 MG tablet
5 mg PO QPMPRN PRN (Reason: sexual activity) Qty: 0 0RF
Rx Instructions:
Avoid taking Cialis and nitroglycerine at same time.
Discontinued
spironolactone 25 mg Tablet
12.5 mg PO DAILY
carvedilol 3.125 mg Tablet
3.125 mg PO BID
Discharge Orders:
Discharge Patient (As Directed); Ordered 12/20/23
Ordered By: Chema Guerra
Discharge Date and Time
Print Language: [id number]
== END 2023-12-20 15:07 | disposition home or self-care (01) ==
LOC: 4 WEST ACU 16:31
PROVIDERS: Clinical Nurse Specialist Family Health; Nurse Practitioner; Nurse Practitioner Family; Physician Assistant; ADMITTING PHYSICIAN Internal Medicine; CONSULT PHYSICIAN Internal Medicine Cardiovascular Disease; EMERGENCY PHYSICIAN Emergency Medicine; FAMILY PHYSICIAN Internal Medicine Geriatric Medicine
DX: R07.9 Chest pain, unspecified (principal); R79.89 Other specified abnormal findings of blood chemistry; I25.10 Atherosclerotic heart disease of native coronary artery without angina pectoris; I35.0 Nonrheumatic aortic (valve) stenosis; I10 Essential (primary) hypertension; I24.9 Acute ischemic heart disease, unspecified; I25.5 Ischemic cardiomyopathy; R26.2 Difficulty in walking, not elsewhere classified; E78.5 Hyperlipidemia, unspecified; N40.0 Benign prostatic hyperplasia without lower urinary tract symptoms; R42 Dizziness and giddiness; G47.33 Obstructive sleep apnea (adult) (pediatric); I48.91 Unspecified atrial fibrillation; I25.2 Old myocardial infarction; Z95.2 Presence of prosthetic heart valve; Z95.5 Presence of coronary angioplasty implant and graft; Z87.891 Personal history of nicotine dependence; Z79.82 Long term (current) use of aspirin; Z79.02 Long term (current) use of antithrombotics/antiplatelets; Z86.73 Personal history of transient ischemic attack (TIA), and cerebral infarction without residual deficits; Z83.3 Family history of diabetes mellitus; Z82.49 Family history of ischemic heart disease and other diseases of the circulatory system
CPT/HCPCS: 80048; 80053; 80061; 84484; 85025; 85027; 93005; 93306; 93454; 97162; 97166; 99285; C1894; G0378; Q9967